=== PATIENT | male | born 1955 | race Caucasian/White ===

== ENCOUNTER 2019-10-31 09:08 | Emergency (ER) | payer BC, MEDICARE, OTHER ==
--- NOTE | 2019-10-31 10:43 | EDM.PDOC ---
ED [facility] GENERAL MEDICAL PROBLEM - General Chief Complaint: Gastrointestinal Problem Stated Complaint: BLEEDING OUT RECTUM Time Seen by Provider: 10/31/19 10:40 Source of Information: Reports: Patient History Limitations: Reports: No Limitations - History of Present Illness INITIAL COMMENTS - FREE TEXT/NARRATIVE: Patient 62-year-old male with a past medical history of obesity, osteoarthritis presenting with a chief complaint of bleeding from the rectum this morning. Patient has a past medical history of several hemorrhoids. Patient has not sought any treatment for these hemorrhoids and has been dealing with them. 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 Patient states when he woke up this morning he found a lot of blood in his bed and realized that it was bleeding from his rectum. Patient states that the bleeding stopped spontaneously. Patient denies any feelings of lightheadedness or dizziness. Patient denies any significant amount of blood loss previously. Patient was seen at the NH and referred to the emergency room for further management. In addition to that documented in the HPI above, the additional ROS was obtained : Constitutional: Denies fevers or chills Eyes: Denies vision changes ENMT: Denies sore throat CV: Denies chest pain Resp: Denies SOB GI: Denies vomiting or diarrhea : Denies painful urination MSK: Denies recent trauma Skin: Denies new rashes Neuro: Denies new numbness or tingling or weakness Endocrine: Denies unexpected weight loss Heme: Denies bleeding disorders I have reviewed the triage vital signs Const: Well nourished, well developed, appears stated age Eyes: PERRL, no conjunctival injection HENT: NCAT, Neck supple without meningismus CV: RRR, Warm, well-perfused extremities RESP: CTAB, Unlabored respiratory effort GI: soft, non-tender, non-distended, no masses Rectal: EDITH Alexandre present, 2 cm external hemorrhoid which is nonthrombosed and not actively bleeding. MSK: No gross deformities appreciated Skin: Warm, dry. No rashes Neuro: Alert, manager of transportation II-XII grossly intact. Sensation and motor function of extremities grossly intact. Psych: Appropriate mood and affect Assessment and plan: Patient is 64-year-old male presenting with external nonthrombosed hemorrhoid. Patient has no active bleeding. Patient will be prescribed pain control stool softener. Patient will have outpatient referral for general surgery for potential elective repair. Patient given instructions to return to the emergency department for hardening of the hemorrhoid or any other concerns. Patient given education on dietary changes for reduction of constipation. - Related Data Allergies Allergy/AdvReac Type Severity Reaction Status Date / Time No Known Allergies Allergy Verified 01/21/16 12:19 Home Meds: Home Meds Methocarbamol 1 tab PO ASDIRECTED PRN 01/21/16 [History] Albuterol Sulfate [Proair Respiclick] 1 10/31/19 [History] Budesonide/Formoterol [Symbicort 160-4.5 MCG] 1 10/31/19 [History] Docusate Sodium [Colace] 100 mg PO BID #30 capsule 10/31/19 [Rx] Fish Oil/[place]-3 Fatty Acids [Fish Oil 1,000 MG] 1 cap PO DAILY 10/31/19 [ History] Lidocaine 4% Top Soln LTA [LTA 360 Kit Top Soln] 4 ml TOP BID #1 kit 10/31/19 [ Rx] Mineral Oil/Pramoxine/ZnOx [Anusol] 30 gm .XX BID #1 tube 10/31/19 [Rx] Sennosides [Senna] 8.6 mg PO DAILY #30 tablet 10/31/19 [Rx] metFORMIN [Glucophage XR] 500 mg PO DAILY 10/31/19 [History] Past Medical History HEENT History: Reports: None Cardiovascular History: Reports: None Respiratory History: Reports: Sleep Apnea Other Respiratory History: uses CPAP Gastrointestinal History: Reports: None Genitourinary History: Reports: None Musculoskeletal History: Reports: Arthritis, Back Pain, Chronic, Neck Pain, Chronic Other Musculoskeletal History: knee arthralgia Neurological History: Reports: None Psychiatric History: Reports: None Endocrine/Metabolic History: Reports: Diabetes, Type II, Obesity/BMI 30+ Hematologic History: Reports: None Immunologic History: Reports: None Oncologic (Cancer) History: Reports: None Dermatologic History: Reports: None - Past Surgical History Head Surgeries/Procedures: Reports: None Social & Family History - Family History Family Medical History: Noncontributory - Tobacco Use Smoking Status *Q: Former Smoker Used Tobacco, but Quit: Yes Month/Year Tobacco Last Used: 10/2003 - Recreational Drug Use Recreational Drug Use: No ED ROS GENERAL - Review of Systems Review Of Systems: See Below ED EXAM, GI/ABD - Physical Exam Exam: See Below Course - Vital Signs Last Recorded V/S: Last Vital Signs Temp 36.2 C 10/31/19 09:18 Pulse 90 10/31/19 09:18 Resp 15 10/31/19 09:18 BP 177/104 H 10/31/19 09:18 Pulse Ox 95 10/31/19 09:18 Departure - Departure Time of Disposition: 10:43 Disposition: Home, Self-Care 01 Clinical Impression: Hemorrhoids - Discharge Information Prescriptions: Docusate Sodium [Colace] 100 mg PO BID #30 capsule Lidocaine 4% Top Soln LTA [LTA 360 Kit Top Soln] 4 ml TOP BID #1 kit Mineral Oil/Pramoxine/ZnOx [Anusol] 30 gm .XX BID #1 tube Sennosides [Senna] 8.6 mg PO DAILY #30 tablet Instructions: Hemorrhoids, [id number] Referrals: Luisito Sue ROUND CUTTER OPERATOR [Primary Care Provider] - Forms: ED Department Discharge Additional Instructions: The following information is given to patients seen in the emergency department who are being discharged to home. This information is to outline your options for follow-up care. We provide all patients seen in our emergency department with a follow-up referral. The need for follow-up, as well as the timing and circumstances, are variable depending upon the specifics of your emergency department visit. If you don't have a primary care physician on staff, we will provide you with a referral. We always advise you to contact your personal physician following an emergency department visit to inform them of the circumstance of the visit and for follow-up with them and/or the need for any referrals to a consulting specialist. The emergency department will also refer you to a specialist when appropriate. This referral assures that you have the opportunity for follow-up care with a specialist. All of these measure are taken in an effort to provide you with optimal care, which includes your follow-up. Under all circumstances we always encourage you to contact your private physician who remains a resource for coordinating your care. When calling for follow-up care, please make the office aware that this follow-up is from your recent emergency room visit. If for any reason you are refused follow-up, please contact the [facility] Emergency Department at and asked to speak to the emergency department charge nurse. Sepsis Event Note - Evaluation Sepsis Screening Result: No Definite Risk - Focused Exam Vital Signs: Vital Signs Temp Pulse Resp BP Pulse Ox 10/31/19 09:18 36.2 C 90 15 177/104 H 95 Date Exam was Performed: 10/31/19 Time Exam was Performed: 10:40
== END 2019-10-31 10:48 | disposition home or self-care (01) ==
LOC: MW.ED 09:08
CPT/HCPCS: 99283

== ENCOUNTER 2021-06-27 12:09 | Emergency (ER) | payer OTHER, MEDICARE ==
--- NOTE | 2021-06-27 15:57 | EDM.PDOC ---
<Tl Guardado - Last Filed: 06/27/21 16:42> ED HPI GENERAL MEDICAL PROBLEM - General Chief Complaint: Abdominal Pain Stated Complaint: DIVERTICULITIS Time Seen by Provider: 06/27/21 15:57 Source of Information: Reports: Patient History Limitations: Reports: No Limitations - History of Present Illness INITIAL COMMENTS - FREE TEXT/NARRATIVE: 66-year-old male past medical history obesity, diverticulitis presents for left lower quadrant pain. Patient states he was in a normal state of health yesterday. He woke up with pain in his left lower quadrant that is worse with palpation. He denies any diarrhea. Denies any nausea or vomiting. Denies any fevers. States it feels like prior episodes of diverticulitis Left Abdominal Pain Score (Numeric/FACES): 0 - Related Data Allergies Allergy/AdvReac Type Severity Reaction Status Date / Time No Known Allergies Allergy Verified 12/20/20 10:34 Home Meds: Home Meds methocarbamoL [Methocarbamol] 1 tab PO ASDIRECTED PRN 01/21/16 [History] Albuterol Sulfate [Proair Respiclick] 1 - 2 puff INH ASDIRECTED PRN 10/31/19 [History] Budesonide/Formoterol [Symbicort 160-4.5 MCG] 2 puff INH BID 10/31/19 [History] Fish Oil/[place]-3 Fatty Acids [Fish Oil 1,000 MG] 1 cap PO DAILY 10/31/19 [History] metFORMIN [Glucophage XR] 500 mg PO ASDIRECTED 10/31/19 [History] Diclofenac Sodium 50 mg PO DAILY PRN 12/20/20 [History] Hydrocortisone [Hydrocortisone 2.5% Crm] 1 applic TOP ASDIRECTED PRN 12/20/20 [History] Ibuprofen 3 tab PO ASDIRECTED PRN 12/20/20 [History] Amoxicillin/Clavulanate K [Augmentin 875-125 MG] 1 tab PO Q12HR 14 Days #28 tab 06/27/21 [Rx] traMADol [Ultram] 50 mg PO Q6H PRN #12 tab 06/27/21 [Rx] Past Medical History HEENT History: Reports: None Cardiovascular History: Reports: None Respiratory History: Reports: Sleep Apnea Other Respiratory History: uses CPAP Gastrointestinal History: Reports: None Genitourinary History: Reports: None Musculoskeletal History: Reports: Arthritis, Back Pain, Chronic, Neck Pain, Chronic Other Musculoskeletal History: knee arthralgia Neurological History: Reports: None Psychiatric History: Reports: None Endocrine/Metabolic History: Reports: Diabetes, Type II, Obesity/BMI 30+ Hematologic History: Reports: None Immunologic History: Reports: None Oncologic (Cancer) History: Reports: None Dermatologic History: Reports: None - Past Surgical History Head Surgeries/Procedures: Reports: None Social & Family History - Family History Family Medical History: No Pertinent Family History ED ROS GENERAL - Review of Systems Review Of Systems: Comprehensive ROS is negative, except as noted in HPI. ED EXAM, GENERAL - Physical Exam Exam: See Below Exam Limited By: No Limitations General Appearance: Alert, WD/WN, No Apparent Distress Ears: Hearing Grossly Normal Throat/Mouth: Normal Voice, No Airway Compromise Head: Atraumatic, Normocephalic Neck: Normal Inspection Respiratory/Chest: No Respiratory Distress, Lungs Clear, Normal Breath Sounds, No Accessory Muscle Use Cardiovascular: Normal Peripheral Pulses, Regular Rate, Rhythm GI/Abdominal: Other (Soft, obese, left lower quadrant tenderness to palpation without guarding or rebound) Extremities: Normal Inspection Neurological: Alert, Normal Cognition, Normal Gait Psychiatric: Normal Affect, Normal Mood Skin Exam: Warm, Dry, Intact, Normal Color Course - Re-Assessments/Exams Free Text/Narrative Re-Assessment/Exam: 06/27/21 16:44 We will get basic labs. Will get CT imaging. Departure - Departure Disposition: Home, Self-Care 01 Clinical Impression: Diverticulitis - Discharge Information Instructions: Diverticulitis Referrals: Luisito Sue CLIENT SUPPORT COORDINATOR [Primary Care Provider] - Forms: ED Department Discharge Additional Instructions: You were seen and evaluated in the ER today secondary to signs and symptoms that were consistent with diverticulitis. The CT scan of the abdomen and pelvis that we reviewed is consistent with acute diverticulitis without any evidence of perforation or abscess. This can be treated as an outpatient with oral antibiotics and an extremely bland diet. Please return to the ER if you start developing worsening pain, fevers, or any new or concerning symptoms. You will be given a prescription for Augmentin 875 to take twice a day for 14 days. You will be given a prescription for Ultram to take to assist you with pain and discomfort. The following information is given to patients seen in the emergency department who are being discharged to home. This information is to outline your options for follow-up care. We provide all patients seen in our emergency department with a follow-up referral. The need for follow-up, as well as the timing and circumstances, are variable depending upon the specifics of your emergency department visit. If you don't have a primary care physician on staff, we will provide you with a referral. We always advise you to contact your personal physician following an emergency department visit to inform them of the circumstance of the visit and for follow-up with them and/or the need for any referrals to a consulting specialist. The emergency department will also refer you to a specialist when appropriate. This referral assures that you have the opportunity for follow-up care with a specialist. All of these measure are taken in an effort to provide you with optimal care, which includes your follow-up. Under all circumstances we always encourage you to contact your private pranavy sician who remains a resource for coordinating your care. When calling for follow-up care, please make the office aware that this follow-up is from your recent emergency room visit. If for any reason you are refused follow-up, please contact the [facility] Emergency Department at and asked to speak to the emergency department charge nurse. [facility] [address] [place] [id number] [place] [address] <Tam Del Rosario - Last Filed: 06/27/21 20:29> ED HPI GENERAL MEDICAL PROBLEM - History of Present Illness INITIAL COMMENTS - FREE TEXT/NARRATIVE: 8:21 PM: Signout received at 7 PM. This is a 66-year-old gentleman who presents ER today complaining of pain to his left lower quadrant with a history significant for diverticulitis. Patient CT scan is consistent with uncomplicated diverticulitis of his mid colon. Patient does not have any evidence of perforation or abscess formation. Patient's repeat abdominal exam here in the ED does not reveal an acute surgical abdomen. Abd: Soft, nondistended, no rebound/guarding, no psoas or obturator signs, no tenderness at Mcberney's point, no Main's sign. Pt does not present with an exam that would be consistent with an acute surgical abdomen at this time Patient will be given Augmentin 875 twice daily x14 days will be instructed to follow-up with his primary care physician. Patient was given a prescription for Ultram as well. Patient was given instructions for bland diet and will need to follow-up with his primary care physician early next week for reevaluation. I have discussed with the patient return to the ER if he start developing any worsening pain, fevers or any other new or concerning symptoms. Reassessment at the time of disposition demonstrates that the patient is in no acute distress. The patient has remained stable throughout the entire ED visit and is without objective evidence for acute process requiring urgent intervention or hospitalization. The patient is stable for discharge, counseling is provided as documented above, discussed symptomatic treatment and specific co nditions for return. I have spoken with the patient/caregiver and discussed todays findings, in addition to providing specific details for the plan of care. Questions are answered and there is agreement with the plan. ED ROS GENERAL - Review of Systems Review Of Systems: See Below ED EXAM, GENERAL - Physical Exam Exam: See Below Course - Vital Signs Last Recorded V/S: Last Vital Signs Temp 98 F 06/27/21 16:10 Pulse 96 06/27/21 16:10 Resp 18 06/27/21 16:10 BP 140/81 06/27/21 16:10 Pulse Ox 93 L 06/27/21 16:10 - Orders/Labs/Meds Orders: Active Orders 24 hr Category Date Time Status Amoxicillin/Clavulanate K [Augmentin 875 MG/125 MG] Med 06/27/21 20:20 Once 1 tab PO ONETIME ONE Ketorolac [Toradol] Med 06/27/21 20:21 Stat 15 mg IVPUSH Q6H STA traMADol [Ultram] Med 06/27/21 20:21 Once 50 mg PO ONETIME ONE Labs: Laboratory Tests 06/27/21 06/27/21 06/27/21 Range/Units 16:16 16:45 16:45 WBC 11.85 H (4.0-11.0) K/uL RBC 5.39 (4.50-5.90) M/uL Hgb 16.8 (13.0-17.0) g/dL Hct 46.4 (38.0-50.0) % MCV 86.1 (80.0-98.0) fL MCH 31.2 (27.0-32.0) pg MCHC 36.2 (31.0-37.0) g/dL RDW Std Deviation 40.4 (28.0-62.0) fl RDW Coeff of Nilo 13 (11.0-15.0) % Plt Count 172 (150-400) K/uL MPV 9.60 (7.40-12.00) fL Neut % (Auto) 61.5 (48.0-80.0) % Lymph % (Auto) 26.9 (16.0-40.0) % Bryan % (Auto) 10.3 (0.0-15.0) % Eos % (Auto) 0.8 (0.0-7.0) % Baso % (Auto) 0.5 (0.0-1.5) % Neut # (Auto) 7.3 H (1.4-5.7) K/uL Lymph # (Auto) 3.2 H (0.6-2.4) K/uL Bryan # (Auto) 1.2 H (0.0-0.8) K/uL Eos # (Auto) 0.1 (0.0-0.7) K/uL Baso # (Auto) 0.1 (0.0-0.1) K/uL Nucleated RBC % 0.0 /100WBC Nucleated RBCs # 0 K/uL Sodium 136 (136-148) mmol/L Potassium 4.0 (3.5-5.1) mmol/L Chloride 101 (98-107) mmol/L Carbon Dioxide 25.0 (21.0-32.0) mmol/L BUN 9 (7.0-18.0) mg/dL Creatinine 1.1 (0.8-1.3) mg/dL Est Cr Clr Drug Dosing 65.64 mL/min Estimated GFR (MDRD) > 60.0 ml/min Glucose 166 H (74-106) mg/dL Calcium 8.4 L (8.5-10.1) mg/dL Total Bilirubin 2.1 H (0.2-1.0) mg/dL AST 39 H (15-37) IU/L ALT 76 H (14-63) IU/L Alkaline Phosphatase 73 (46-116) U/L Total Protein 7.7 (6.4-8.2) g/dL Albumin 3.9 (3.4-5.0) g/dL Globulin 3.8 (2.6-4.0) g/dL Albumin/Globulin Ratio 1.0 (0.9-1.6) Lipase 81 (73-393) U/L Urine Color YELLOW Urine Appearance CLEAR Urine pH 5.5 (5.0-8.0) Ur Specific Sawyer >= 1.030 (1.001-1.035) Urine Protein TRACE H (NEGATIVE) mg/dL Urine Glucose (UA) NEGATIVE (NEGATIVE) mg/dL Urine Ketones NEGATIVE (NEGATIVE) mg/dL Urine Occult Blood NEGATIVE (NEGATIVE) Urine Nitrite NEGATIVE (NEGATIVE) Urine Bilirubin NEGATIVE (NEGATIVE) Urine Urobilinogen 0.2 (<2.0) EU/dL Ur Leukocyte Esterase NEGATIVE (NEGATIVE) Urine RBC 0-1 (0-2/HPF) Urine WBC 0-1 (0-5/HPF) Ur Epithelial Cells RARE (NONE-FEW) Urine Bacteria RARE (NEGATIVE) Urine Mucus LIGHT (NONE-MOD) Meds: Medications Discontinued Medications Generic Name Dose Route Start Last Admin Trade Name Shruthi PRN Reason Stop Dose Admin Iopamidol 100 ml 06/27/21 19:14 06/27/21 19:15 Iopamidol 755 Mg/Ml 500 Ml Multipack Bottle IVPUSH 06/27/21 19:15 100 ml ONETIME STA Administration Departure - Departure Time of Disposition: 20:25 Sepsis Event Note (ED) - Focused Exam Vital Signs: Vital Signs Temp Pulse Resp BP Pulse Ox 06/27/21 16:10 98 F 96 18 140/81 93 L - My Orders Last 24 Hours: My Active Orders 06/27/21 20:20 Amoxicillin/Clavulanate K [Augmentin 875 MG/125 MG] 1 tab PO ONETIME ONE 06/27/21 20:21 Ketorolac [Toradol] 15 mg IVPUSH Q6H STA traMADol [Ultram] 50 mg PO ONETIME ONE - Assessment/Plan Last 24 Hours: My Active Orders 06/27/21 20:20 Amoxicillin/Clavulanate K [Augmentin 875 MG/125 MG] 1 tab PO ONETIME ONE 06/27/21 20:21 Ketorolac [Toradol] 15 mg IVPUSH Q6H STA traMADol [Ultram] 50 mg PO ONETIME ONE
[2021-06-27 16:19] VITALS: PULSE 96
[2021-06-27 17:35] LABS: BLOOD UREA NITROGEN,BUN 9 mg/dL (7.0-18.0); CHLORIDE,CL 101 mmol/L (98-107); GLUCOSE RANDOM 166 mg/dL (74-106); LIPASE 81 U/L (73-393); SODIUM,NA 136 mmol/L (136-148)
[2021-06-27] MEDS ORDERED: Iopamidol 755 MG/ML 500 ML Multipack Bottle IVPUSH STA (19:14)
--- NOTE | 2021-06-27 19:29 | CT ---
INDICATION: Left lower quadrant pain, history of diverticulitis. TECHNIQUE: CT of the abdomen and pelvis with 100 cc Isovue 370 IV contrast. Coronal and sagittal reconstructions. COMPARISON: CT of the abdomen and pelvis 03/02/2019. FINDINGS: The liver is enlarged measuring 24 cm in length. Marked diffuse hepatic steatosis. The spleen is enlarged measuring 14 cm in length. Splenule. The gallbladder, pancreas, and right adrenal gland are negative. No biliary dilation. Stable small left adrenal nodule which most likely represents a benign adenoma. Hepatic and portal veins are patent. Symmetric enhancement of the kidneys. Focal cortical scarring in the posterior upper pole of the right kidney. No hydronephrosis or ureteral dilation. No obstructing urinary calculi. The bladder and prostate gland are normal in appearance. Colonic diverticulosis. There is focal wall thickening and inflammatory fat stranding about the mid descending colon compatible with acute diverticulitis (series 201, image 112). This is in a similar location to the prior exam. No fluid collection to suggest abscess. Trace free fluid in the left paracolic gutter. No intraperitoneal free air. Negative appendix. 5.5 cm diverticulum arising from the distal transverse duodenum. Mild vascular calcifications. No lymphadenopathy. Degenerative changes of the spine. Stable 7 mm noncalcified pulmonary nodule along the left major fissure (series 202, image 3). This is unchanged since 2019 and should be benign. Minimal scattered bibasilar atelectasis. Coronary artery calcifications. IMPRESSION: 1. Acute uncomplicated diverticulitis of the mid descending colon. No evidence of perforation or abscess. 2. Hepatosplenomegaly with marked diffuse hepatic steatosis. Please note that all CT scans at this facility use dose modulation, iterative reconstruction, and/or weight-based dosing when appropriate to reduce radiation dose to as low as reasonably achievable. Dictated by Radha Delacruz MD @ 06/27/2021 7:27:24 PM (Electronically Signed)
[2021-06-27] MEDS ORDERED: Amoxicillin/Clavulanate K 875-125 MG Tab PO ONE (20:20)
[2021-06-27] MEDS ORDERED: Ketorolac 15 MG/ML SDV IVPUSH STA (20:21)
[2021-06-27] MEDS ORDERED: traMADol 50 MG Tab PO ONE (20:21)
[2021-06-27 20:43] VITALS: BP 131/80
== END 2021-06-27 20:45 | disposition home or self-care (01) ==
LOC: MW.ED 12:09
DX: K57.32 Diverticulitis of large intestine without perforation or abscess without bleeding (principal); M19.90 Unspecified osteoarthritis, unspecified site; E11.9 Type 2 diabetes mellitus without complications; E66.9 Obesity, unspecified; Z68.43 Body mass index [BMI] 50.0-59.9, adult; Z79.84 Long term (current) use of oral hypoglycemic drugs; Z79.899 Other long term (current) drug therapy
CPT/HCPCS: 36415; 74177; 80053; 81001; 83690; 85025; 96374; 99284; A9270; J1885; Q9967

== ENCOUNTER 2021-07-25 19:20 | Emergency (ER) | payer OTHER, MEDICARE ==
--- NOTE | 2021-07-25 21:02 | PCM.EKG ---
#1 Interpretation EKG Date: 07/25/21 Time: 20:26 Rhythm: NSR Rate (Beats/Min): 111 [place]: LAD-Left [place] Deviation P-Wave: Present QRS: Normal ST-T: Normal QT: Normal Comparison: No Change (01/22/16) EKG Interpretation Comments: Sinus Tachycardia
[2021-07-25] MEDS ORDERED: Iopamidol 755 Mg/ML 100 ML Bottle IVPUSH ONE (21:22)
--- NOTE | 2021-07-25 21:57 | CR ---
Indication: Syncope. Technique: AP portable view of the chest. Comparison: None Findings: The heart is normal in size. The lungs are clear. No infiltrate, pleural effusion, or pneumothorax is identified. Impression: No acute cardiopulmonary process Dictated by Ameena Dent MD @ 07/25/2021 9:55:36 PM (Electronically Signed)
[2021-07-25 22:07] LABS: BLOOD UREA NITROGEN,BUN 11 mg/dL (7.0-18.0); CARBON DIOXIDE,CO2 25.5 mmol/L (21.0-32.0); CHLORIDE,CL 102 mmol/L (98-107); GLUCOSE RANDOM 211 mg/dL (74-106); POTASSIUM,K 4.1 mmol/L (3.5-5.1); SODIUM,NA 137 mmol/L (136-148)
--- NOTE | 2021-07-25 22:07 | CT ---
DATE: 07/25/2021 CLINICAL HISTORY: Patient with headache and vertigo. TECHNIQUE: Standard helical CT image acquisition through the head and neck was performed after intravenous contrast bolus enhancement. Multiplanar reconstructed images were performed and interpreted. COMPARISON: CT same day FINDINGS: The origins of the great vessels from the aortic arch are patent. The origin of the right vertebral artery is patent. The origin of the left vertebral artery is patent. The common carotid arteries are patent There is no stenosis at the origin of the right internal carotid artery. There is no stenosis at the origin of the left internal carotid artery. The rest of the cervical segments of the internal carotid arteries are patent up to their intracranial segments. The intracranial segments of the internal carotid arteries are patent. The right vertebral artery is dominant. The cervical segments of the vertebral arteries are patent. The intracranial segments of the vertebral arteries are patent. The middle cerebral arteries are normal without aneurysm or proximal occlusion identified. The anterior cerebral arteries are normal without aneurysm or proximal occlusion identified. The anterior communicating artery is well visualized and appears normal. The basilar artery is normal without aneurysm or occlusion. The posterior cerebral arteries are normal without aneurysm or proximal occlusion. There is normal opacification of major intracranial venous structures. The visualized lung apices are unremarkable The thyroid gland is unremarkable. The soft tissues of the neck are unremarkable. There are degenerative changes in the cervical spine. IMPRESSION: Normal CT angiogram of the head and neck. Please note that all CT scans at this facility use dose modulation, iterative reconstruction, and/or weight-based dosing when appropriate to reduce radiation dose to as low as reasonably achievable. Dictated by Emily Quigley MD @ 07/25/2021 10:11:57 PM (Electronically Signed)
[2021-07-25] MEDS ORDERED: Aspirin 81 MG Tab.Chew PO ONE (23:39)
[2021-07-26 00:06] VITALS: BP 145/91; PULSE 127
--- NOTE | 2021-07-26 00:23 | EDM.PDOC ---
ED HPI GENERAL MEDICAL PROBLEM - General Chief Complaint: Headache Stated Complaint: DIZZINESS, HEADACHE Time Seen by Provider: 07/25/21 20:10 - History of Present Illness INITIAL COMMENTS - FREE TEXT/NARRATIVE: CHIEF COMPLAINT(S): Dizziness and trouble walking HISTORY OF PRESENT ILLNESS: This is a 66-year-old man with a past medical history of diabetes mellitus who comes to the emergency department with a chief complaint of dizziness and trouble walking. The patient states that approximately at noon he started to experience dizziness which he describes as the room spinning constantly. He states that moving his head does not worsen the spinning and it is constant throughout any movement. He states that it got worse and he just fought through it and made dinner. He states that it has been strange because he is having a tough time walking and describes it like drunk walking. He states that this came on gradually and he has never had this before. He denies any earache, runny nose, dental pain or dental infection. He denies any blurry vision or loss of vision. He states that he did have a mild headache which resolved but described it as a throbbing headache located in the center of his head from the front to the back not associated with any numbness, tingling or weakness. He denies any trouble speaking or swallowing. He denies any IV drug use or prior history of CVA. He denies any chest pain, shortness of breath or prior history of atrial fibrillation. REVIEW OF SYSTEMS: Constitutional: Denies fever, chills. Eyes: Denies eye pain Ears, Nose, Mouth, & Throat: Denies earache Cardiovascular: Denies chest pain Respiratory: Denies shortness of breath Gastrointestinal: Denies Nausea, vomiting, diarrhea, hematochezia. Genitourinary: Denies hematuria Skin:Denies a rash MSK: Denies joint pain Neurological: Positive for headache, trouble walking, vertigo. Psychiatric: Denies depression PAST MEDICAL HISTORY: As per history of present illness and as reviewed below otherwise noncontributory. SURGICAL HISTORY: As per history of present illness and as reviewed below otherwise noncontributory. SOCIAL HISTORY: As per history of present illness and as reviewed below otherwise noncontributory. FAMILY HISTORY: As per history of present illness and as reviewed below otherwise noncontributory. EXAMINATION OF ORGAN SYSTEMS/BODY AREAS: Constitutional: Blood pressure is 172/90, heart rate 114, respiratory rate 22 with an oxygen saturation of 94% on room air. Temperature 37.1 General: Obese gentleman who does not appear to be in acute distress Psychiatric: Appropriate mood and affect. Eyes: No scleral icterus or conjunctival erythema pupils were 3 mm and reactive bilaterally. Extraocular movements intact. No vertical or horizontal nystagmus noted. ENMT: Moist mucous membranes. No pharyngeal erythema tongue protrudes midline. Cardiovascular: Regular, rate, and rhythm. No gallops, murmurs, or rubs. Bilateral upper extremity pulses symmetric and intact. No peripheral edema. No JVD. Respiratory: Lungs clear to auscultation bilaterally. No wheezes, rales, or rhonchi. Gastrointestinal: Soft, non-tender, non-distended. Normoactive bowel sounds Genitourinary: No suprapubic tenderness Musculoskeletal: Normal range of motion. Skin: No lesions or abrasions. Neurological: AOx4. Facies are symmetrical. Strength 5/5 in bilateral upper and lower extremity. Sensation is intact bilaterally in upper and lower extremity. Gait is ataxic. Finger to nose, heel to beaver, rapid alternating movements intact. MEDICAL DECISION MAKING AND COURSE IN THE ED WITH INTERPRETATION/REVIEW OF DIAGNOSTIC STUDIES: This is a 66-year-old man with a past medical history of obesity and diabetes mellitus who comes to the emergency department with acute onset vertigo and ataxia who has an ataxic gait with an otherwise intact neurological examination. The patient is mildly tachycardic and tachypneic. Will obtain an EKG. Given the persistent and constant vertigo and ataxic gait I am concerned about the possibility of a posterior circulation stroke. We will obtain a CT head and angiogram of the head and neck however I did discuss with patient at this time that most posterior strokes are missed on these images and will likely need an MRI. He was amenable to this plan. In addition given the dizziness we will undergo a cardiac work-up. Obtain CBC, CMP, troponin, Covid, and TSH. Differential also includes carbon monoxide poisoning will obtain a CO level. Will obtain a chest x-ray. Laboratory: CBC is unremarkable. Carboxyhemoglobin is 1.7. CMP reveals elevated creatinine at 1.4, hyperglycemia at 211, hypocalcemia 8.4, hyperbilirubinemia with a total bilirubin of 1.1 and a transaminitis with an AST of 41 and ALT of 75. Troponin is negative. TSH is normal at 1.8. Covid is negative. The radiological images were viewed by myself along with reading the report from the radiologist. Chest x-ray does not reveal any acute cardiopulmonary process. CT head without contrast does not reveal any acute intracranial abnormality. CTA of the head and neck do not reveal any large vessel occlusion or aneurysm. After imaging I did contact [facility] in [place] and spoke with Dr. Ferro who does recommend a MRI to evaluate for posterior circulation stroke. I then spoke with emergency physician Dr. Solares who accepted the patient for transfer. We have contacted every ambulance service within the area and nobody is available for transport until 6 AM. In addition the patient does not meet flight criteria. I did discuss with the patient about the possibility of pr ivate vehicle transfer. The patient is tachycardic and but otherwise has normal vital signs. Repeat EKG did reveal sinus tachycardia. I do believe that a private vehicle transport at this time is warranted as it will allow him to arrive sooner for emergent MRI for possible posterior circulation stroke. He was amenable to this plan. There are multiple emergency departments on his way to [facility] and I did discuss that if he felt any chest pain, shortness of breath felt like he was going to pass out or had any concerns to stop on the side of the road with his friend and call 911. He did express understanding and was amenable to this plan. I did discuss this with accepting facility. DISPOSITION: Patient was transferred to [facility] in [place] in stable condition CONDITION: Serious PROCEDURES: None FINAL IMPRESSION(S)/DIAGNOSES: 1. 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 Acute ataxia likely secondary to posterior circulation CVA Nadre Shearer M.D. Treatments INCLUSION TEACHER: Reports: NSAIDS - Related Data Allergies Allergy/AdvReac Type Severity Reaction Status Date / Time No Known Allergies Allergy Verified 07/25/21 23:55 Home Meds: Home Meds methocarbamoL [Methocarbamol] 1 tab PO ASDIRECTED PRN 01/21/16 [History] Albuterol Sulfate [Proair Respiclick] 1 - 2 puff INH ASDIRECTED PRN 10/31/19 [History] Budesonide/Formoterol [Symbicort 160-4.5 MCG] 2 puff INH BID 10/31/19 [History] Fish Oil/[place]-3 Fatty Acids [Fish Oil 1,000 MG] 1 cap PO DAILY 10/31/19 [History] metFORMIN [Glucophage XR] 500 mg PO ASDIRECTED 10/31/19 [History] Diclofenac Sodium 50 mg PO DAILY PRN 12/20/20 [History] Hydrocortisone [Hydrocortisone 2.5% Crm] 1 applic TOP ASDIRECTED PRN 12/20/20 [History] Ibuprofen 3 tab PO ASDIRECTED PRN 12/20/20 [History] Alogliptin Benzoate [Alogliptin] 12.5 mg PO DAILY 07/25/21 [History] Past Medical History HEENT History: Reports: None Cardiovascular History: Reports: Hypertension Respiratory History: Reports: Sleep Apnea Other Respiratory History: uses CPAP Gastrointestinal History: Reports: None Genitourinary History: Reports: None Musculoskeletal History: Reports: Arthritis, Back Pain, Chronic, Neck Pain, Chronic Other Musculoskeletal History: knee arthralgia Neurological History: Reports: None Psychiatric History: Reports: None Endocrine/Metabolic History: Reports: Diabetes, Type II, Obesity/BMI 30+ Hematologic History: Reports: None Immunologic History: Reports: None Oncologic (Cancer) History: Reports: None Dermatologic History: Reports: None - Infectious Disease History Infectious Disease History: Reports: Chicken Pox, Measles, Novel Coronavirus - Past Surgical History Head Surgeries/Procedures: Reports: None Other Musculoskeletal Surgeries/Procedures:: hx knee surgery and left index metacarpal surgery Dermatological Surgical History: Reports: Other (See Below) Social & Family History - Family History Family Medical History: No Pertinent Family History - Tobacco Use Tobacco Use Status *Q: Former Tobacco User Used Tobacco, but Quit: Yes Month/Year Tobacco Last Used: 2003 - Caffeine Use Caffeine Use: Reports: Coffee - Recreational Drug Use Recreational Drug Use: No ED ROS GENERAL - Review of Systems Review Of Systems: See Below ED EXAM, GENERAL - Physical Exam Exam: See Below Course - Vital Signs Last Recorded V/S: Last Vital Signs Temp 37.1 C 07/25/21 19:37 Pulse 127 H 07/26/21 00:05 Resp 19 07/26/21 00:05 BP 145/91 H 07/26/21 00:05 Pulse Ox 95 07/26/21 00:05 - Orders/Labs/Meds Orders: Active Orders 24 hr Category Date Time Status Blood Glucose Check, Bedside [RC] ONETIME Care 07/25/21 20:22 Active Ang Head [CT] Stat Exams 07/25/21 21:15 Taken Head wo Cont [CT] Stat Exams 07/25/21 21:15 Taken Labs: Laboratory Tests 07/25/21 07/25/21 07/25/21 Range/Units 20:20 21:28 21:28 WBC 8.65 (4.0-11.0) K/uL RBC 5.33 (4.50-5.90) M/uL Hgb 16.6 (13.0-17.0) g/dL Hct 46.2 (38.0-50.0) % MCV 86.7 (80.0-98.0) fL MCH 31.1 (27.0-32.0) pg MCHC 35.9 (31.0-37.0) g/dL RDW Std Deviation 40.7 (28.0-62.0) fl RDW Coeff of Nilo 13 (11.0-15.0) % Plt Count 162 (150-400) K/uL MPV 9.60 (7.40-12.00) fL Neut % (Auto) 74.3 (48.0-80.0) % Lymph % (Auto) 16.8 (16.0-40.0) % Hale % (Auto) 7.7 (0.0-15.0) % Eos % (Auto) 0.9 (0.0-7.0) % Baso % (Auto) 0.3 (0.0-1.5) % Neut # (Auto) 6.4 H (1.4-5.7) K/uL Lymph # (Auto) 1.5 (0.6-2.4) K/uL Hale # (Auto) 0.7 (0.0-0.8) K/uL Eos # (Auto) 0.1 (0.0-0.7) K/uL Baso # (Auto) 0.0 (0.0-0.1) K/uL Nucleated RBC % 0.0 /100WBC Nucleated RBCs # 0 K/uL ABG Carboxyhemoglobin (0-15) % Sodium 137 (136-148) mmol/L Potassium 4.1 (3.5-5.1) mmol/L Chloride 102 (98-107) mmol/L Carbon Dioxide 25.5 (21.0-32.0) mmol/L BUN 11 (7.0-18.0) mg/dL Creatinine 1.4 H (0.8-1.3) mg/dL Est Cr Clr Drug Dosing 51.57 mL/min Estimated GFR (MDRD) 51.0 ml/min Glucose 211 H (74-106) mg/dL Lactic Acid (0.4-2.0) mmol/L Calcium 8.4 L (8.5-10.1) mg/dL Magnesium 1.9 (1.8-2.4) mg/dL Total Bilirubin 1.1 H (0.2-1.0) mg/dL AST 41 H (15-37) IU/L ALT 75 H (14-63) IU/L Alkaline Phosphatase 68 (46-116) U/L Troponin I < 0.050 (0.000-0.056) ng/mL Total Protein 7.9 (6.4-8.2) g/dL Albumin 3.8 (3.4-5.0) g/dL Globulin 4.1 H (2.6-4.0) g/dL Albumin/Globulin Ratio 0.9 (0.9-1.6) TSH, Ultra Sensitive 1.84 (0.36-3.74) uIU/mL SARS-CoV-2 RNA (ROSIE) NEGATIVE (NEGATIVE) 07/25/21 07/25/21 Range/Units 21:58 23:40 WBC (4.0-11.0) K/uL RBC (4.50-5.90) M/uL Hgb (13.0-17.0) g/dL Hct (38.0-50.0) % MCV (80.0-98.0) fL MCH (27.0-32.0) pg MCHC (31.0-37.0) g/dL RDW Std Deviation (28.0-62.0) fl RDW Coeff of Nilo (11.0-15.0) % Plt Count (150-400) K/uL MPV (7.40-12.00) fL Neut % (Auto) (48.0-80.0) % Lymph % (Auto) (16.0-40.0) % Hale % (Auto) (0.0-15.0) % Eos % (Auto) (0.0-7.0) % Baso % (Auto) (0.0-1.5) % Neut # (Auto) (1.4-5.7) K/uL Lymph # (Auto) (0.6-2.4) K/uL Hale # (Auto) (0.0-0.8) K/uL Eos # (Auto) (0.0-0.7) K/uL Baso # (Auto) (0.0-0.1) K/uL Nucleated RBC % /100WBC Nucleated RBCs # K/uL ABG Carboxyhemoglobin 1.7 (0-15) % Sodium (136-148) mmol/L Potassium (3.5-5.1) mmol/L Chloride (98-107) mmol/L Carbon Dioxide (21.0-32.0) mmol/L BUN (7.0-18.0) mg/dL Creatinine (0.8-1.3) mg/dL Est Cr Clr Drug Dosing mL/min Estimated GFR (MDRD) ml/min Glucose (74-106) mg/dL Lactic Acid 1.4 (0.4-2.0) mmol/L Calcium (8.5-10.1) mg/dL Magnesium (1.8-2.4) mg/dL Total Bilirubin (0.2-1.0) mg/dL AST (15-37) IU/L ALT (14-63) IU/L Alkaline Phosphatase (46-116) U/L Troponin I (0.000-0.056) ng/mL Total Protein (6.4-8.2) g/dL Albumin (3.4-5.0) g/dL Globulin (2.6-4.0) g/dL Albumin/Globulin Ratio (0.9-1.6) TSH, Ultra Sensitive (0.36-3.74) uIU/mL SARS-CoV-2 RNA (ROSIE) (NEGATIVE) Meds: Medications Discontinued Medications Generic Name Dose Route Start Last Admin Trade Name Freq PRN Reason Stop Dose Admin Aspirin 324 mg 07/25/21 23:39 07/25/21 23:48 Aspirin 81 Mg Tab.Chew PO 07/25/21 23:40 324 mg ONETIME ONE Administration Iopamidol 100 ml 07/25/21 21:22 07/25/21 21:50 Iopamidol 755 Mg/Ml 100 Ml Bottle IVPUSH 07/25/21 21:23 100 ml ONETIME ONE Administration Departure - Departure Time of Disposition: 00:19 Disposition: Home, Self-Care 01 Condition: Fair Clinical Impression: Vertigo - Discharge Information *PRESCRIPTION DRUG MONITORING PROGRAM REVIEWED*: No *COPY OF PRESCRIPTION DRUG MONITORING REPORT IN PATIENT ADIEL: No Referrals: Luisito Sue OFFICE SWEEPER [Primary Care Provider] - Forms: ED Department Discharge Sepsis Event Note (ED) - Evaluation Sepsis Screening Result: No Definite Risk - Focused Exam Vital Signs: Vital Signs Temp Pulse Resp BP Pulse Ox 07/26/21 00:05 127 H 19 145/91 H 95 07/25/21 22:25 125 H 20 143/97 H 95 07/25/21 21:45 129 H 19 148/93 H 94 L 07/25/21 19:37 37.1 C 114 H 22 H 172/90 H 94 L - My Orders Last 24 Hours: My Active Orders 07/25/21 20:22 Blood Glucose Check, Bedside [RC] ONETIME 07/25/21 21:15 Ang Head [CT] Stat Head wo Cont [CT] Stat - Assessment/Plan Last 24 Hours: My Active Orders 07/25/21 20:22 Blood Glucose Check, Bedside [RC] ONETIME 07/25/21 21:15 Ang Head [CT] Stat Head wo Cont [CT] Stat
--- NOTE | 2021-07-26 00:39 | PCM.EKG ---
#1 Interpretation EKG Date: 07/26/21 Time: 00:20 Rhythm: NSR Rate (Beats/Min): 125 [place]: Normal P-Wave: Present QRS: Normal ST-T: Normal QT: Normal Comparison: No Change (today) EKG Interpretation Comments: Sinus Tachycardia
--- NOTE | 2021-07-29 14:36 | CT ---
EXAM DATE: 07/25/21 PATIENT'S AGE: 66 Patient: PARESH PERALTA [facility] Site : 1955 Study: CT-Head w/o STROKE PROTOCOL-07/25/2021 10:00:27 PM Ordering Physician: Manfred Doe Final Report: CT HEAD DATE: 07/25/2021 CLINICAL HISTORY: Patient with headache and vertigo. TECHNIQUE: Standard CT scanning of the head was performed. COMPARISON: None. FINDINGS: There is no intracranial hemorrhage. There is no territorial infarction. There are mild microangiopathic changes. There is diffuse parenchymal volume loss. There is no mass effect or midline shift. The calvarium is unremarkable. The orbits are unremarkable. The paranasal sinuses are unremarkable. The mastoid air cells are unremarkable. The soft tissues are unremarkable. IMPRESSION: 1. No intracranial hemorrhage or territorial infarction. 2. Mild microangiopathic changes and diffuse parenchymal volume loss. Please note that all CT scans at this facility use dose modulation, iterative reconstruction, and/or weight-based dosing when appropriate to reduce radiation dose to as low as reasonably achievable. Dictated by: Emily Quigley MD @ 07/25/2021 22:06:59 Signed by: Emily Quigley MD @07/25/2021 10:06:59 PM (Electronic Signature) Report Signed by Proxy. [facility]
--- NOTE | 2021-07-29 14:37 | CT ---
EXAM DATE: 07/25/21 PATIENT'S AGE: 66 Patient: PARESH PERALTA Facility: [facility] . [facility] : 1955 Study: CT-Angio Head STROKE PROTOCOL-07/25/2021 10:00:51 PM Ordering Physician: Manfred Doe Final Report: DATE: 07/25/2021 CLINICAL HISTORY: Patient with headache and vertigo. TECHNIQUE: Standard helical CT image acquisition through the head and neck was performed after intravenous contrast bolus enhancement. Multiplanar reconstructed images were performed and interpreted. COMPARISON: CT same day FINDINGS: The origins of the great vessels from the aortic arch are patent. The origin of the right vertebral artery is patent. The origin of the left vertebral artery is patent. The common carotid arteries are patent There is no stenosis at the origin of the right internal carotid artery. There is no stenosis at the origin of the left internal carotid artery. The rest of the cervical segments of the internal carotid arteries are patent up to their intracranial segments. The intracranial segments of the internal carotid arteries are patent. The right vertebral artery is dominant. The cervical segments of the vertebral arteries are patent. The intracranial segments of the vertebral arteries are patent. The middle cerebral arteries are normal without aneurysm or proximal occlusion identified. The anterior cerebral arteries are normal without aneurysm or proximal occlusion identified. The anterior communicating artery is well visualized and appears normal. The basilar artery is normal without aneurysm or occlusion. The posterior cerebral arteries are normal without aneurysm or proximal occlusion. There is normal opacification of major intracranial venous structures. The visualized lung apices are unremarkable The thyroid gland is unremarkable. The soft tissues of the neck are unremarkable. There are degenerative changes in the cervical spine. IMPRESSION: Normal CT angiogram of the head and neck. Please note that all CT scans at this facility use dose modulation, iterative reconstruction, and/or weight-based dosing when appropriate to reduce radiation dose to as low as reasonably achievable. Dictated by Emily Quigley MD @ 07/25/2021 10:11:22 PM Signed by: Emily Quigley MD @07/25/2021 10:11:22 PM (Electronic Signature) Report Signed by Proxy. [facility]
== END 2021-07-26 00:56 | disposition home or self-care (01) ==
LOC: MW.ED 19:20
DX: R27.0 Ataxia, unspecified (principal); I10 Essential (primary) hypertension; E11.9 Type 2 diabetes mellitus without complications; E66.9 Obesity, unspecified; Z68.43 Body mass index [BMI] 50.0-59.9, adult; Z79.899 Other long term (current) drug therapy; Z79.84 Long term (current) use of oral hypoglycemic drugs; Z87.891 Personal history of nicotine dependence; Z20.822 Contact with and (suspected) exposure to COVID-19
CPT/HCPCS: 36415; 70450; 70496; 70498; 71045; 80053; 82375; 83605; 83735; 84443; 84484; 85025; 87635; 93005; 99285; A9270; Q9967; 93010; 99284; U0002

== ENCOUNTER 2021-10-20 23:01 | Emergency (ER) | payer OTHER, MEDICARE ==
[2021-10-20] MEDS ORDERED: Meclizine 25 MG Tab PO ONE (23:09)
--- NOTE | 2021-10-20 23:09 | EDM.PDOC ---
ED HPI GENERAL MEDICAL PROBLEM - General Stated Complaint: POSSIBLE STROKE, DIZZINESS Time Seen by Provider: 10/20/21 23:02 Source of Information: Reports: Patient History Limitations: Reports: No Limitations - History of Present Illness INITIAL COMMENTS - FREE TEXT/NARRATIVE: 66-year-old male past medical history morbid obesity, type 2 diabetes, hypertension presents for dizziness. Patient states that symptoms started around 8 PM this evening. He describes it as a room spinning sensation and like he feels off balance when he is walking. Nothing seems to make it better or worse including sitting or lying down. He denies any associated shortness of breath, chest pain, headaches, one-sided body weakness, confusion, slurred speech. He notes that he was seen here in July for similar symptoms and transferred to [facility] where he was ultimately diagnosed with TIA. He was started on blood thinning medications but patient cannot remember the names of any of his medications. - Related Data Allergies Allergy/AdvReac Type Severity Reaction Status Date / Time No Known Allergies Allergy Verified 10/20/21 23:34 Home Meds: Home Meds methocarbamoL [Methocarbamol] 1 tab PO ASDIRECTED PRN 01/21/16 [History] Albuterol Sulfate [Proair Respiclick] 1 - 2 puff INH ASDIRECTED PRN 10/31/19 [History] Budesonide/Formoterol [Symbicort 160-4.5 MCG] 2 puff INH BID 10/31/19 [History] Fish Oil/[place]-3 Fatty Acids [Fish Oil 1,000 MG] 1 cap PO DAILY 10/31/19 [History] metFORMIN [Glucophage XR] 500 mg PO ASDIRECTED 10/31/19 [History] Diclofenac Sodium 50 mg PO DAILY PRN 12/20/20 [History] Hydrocortisone [Hydrocortisone 2.5% Crm] 1 applic TOP ASDIRECTED PRN 12/20/20 [History] Ibuprofen 3 tab PO ASDIRECTED PRN 12/20/20 [History] Alogliptin Benzoate [Alogliptin] 12.5 mg PO DAILY 07/25/21 [History] Past Medical History HEENT History: Reports: None Cardiovascular History: Reports: Hypertension Respiratory History: Reports: Sleep Apnea Other Respiratory History: uses CPAP Gastrointestinal History: Reports: None Genitourinary History: Reports: None Musculoskeletal History: Reports: Arthritis, Back Pain, Chronic, Neck Pain, Chronic Other Musculoskeletal History: knee arthralgia Neurological History: Reports: None Psychiatric History: Reports: None Endocrine/Metabolic History: Reports: Diabetes, Type II, Obesity/BMI 30+ Hematologic History: Reports: None Immunologic History: Reports: None Oncologic (Cancer) History: Reports: None Dermatologic History: Reports: None - Infectious Disease History Infectious Disease History: Reports: Chicken Pox, Measles, Novel Coronavirus - Past Surgical History Head Surgeries/Procedures: Reports: None Other Musculoskeletal Surgeries/Procedures:: hx knee surgery and left index metacarpal surgery Dermatological Surgical History: Reports: Other (See Below) Social & Family History - Family History Family Medical History: No Pertinent Family History - Caffeine Use Caffeine Use: Reports: Coffee ED ROS GENERAL - Review of Systems Review Of Systems: Comprehensive ROS is negative, except as noted in HPI. ED EXAM, GENERAL - Physical Exam Exam: See Below Exam Limited By: No Limitations General Appearance: Alert, WD/WN, No Apparent Distress Eye Exam: Bilateral Eye: EOMI, PERRL Ears: Hearing Grossly Normal Throat/Mouth: Normal Voice, No Airway Compromise Head: Atraumatic, Normocephalic Respiratory/Chest: No Respiratory Distress, Lungs Clear, Normal Breath Sounds, No Accessory Muscle Use Cardiovascular: Normal Peripheral Pulses, Regular Rate, Rhythm Extremities: Normal Inspection Neurological: Alert, CN II-XII Intact, Normal Cognition, Normal Gait, No Motor/Sensory Deficits Psychiatric: Normal Affect, Normal Mood Skin Exam: Warm, Dry, Intact, Normal Color #1 Interpretation EKG Date: 10/20/21 Time: 23:23 Rhythm: NSR Rate (Beats/Min): 104 Isabel: Normal P-Wave: Present QRS: Normal ST-T: Normal QT: Normal AR/PQ Interval: 169 EKG Interpretation Comments: no ischemic changes Course - Vital Signs Last Recorded V/S: Last Vital Signs Temp 98.1 F 10/20/21 23:34 Pulse 101 H 10/20/21 23:56 Resp 16 10/20/21 23:56 BP 133/73 10/20/21 23:56 Pulse Ox 95 10/20/21 23:56 - Orders/Labs/Meds Orders: Active Orders 24 hr Category Date Time Status Saline Lock Insert [OM.PC] Stat Oth 10/20/21 23:09 Ordered Labs: Laboratory Tests 10/20/21 10/20/21 10/20/21 Range/Units 23:07 23:10 23:10 WBC 15.84 H (4.0-11.0) K/uL RBC 5.51 (4.50-5.90) M/uL Hgb 16.7 (13.0-17.0) g/dL Hct 47.1 (38.0-50.0) % MCV 85.5 (80.0-98.0) fL MCH 30.3 (27.0-32.0) pg MCHC 35.5 (31.0-37.0) g/dL RDW Std Deviation 41.4 (28.0-62.0) fl RDW Coeff of Nilo 13 (11.0-15.0) % Plt Count 225 (150-400) K/uL MPV 9.10 (7.40-12.00) fL Neut % (Auto) 55.2 (48.0-80.0) % Lymph % (Auto) 35.6 (16.0-40.0) % [place] % (Auto) 7.9 (0.0-15.0) % Eos % (Auto) 0.9 (0.0-7.0) % Baso % (Auto) 0.4 (0.0-1.5) % Neut # (Auto) 8.7 H (1.4-5.7) K/uL Lymph # (Auto) 5.6 H (0.6-2.4) K/uL [place] # (Auto) 1.3 H (0.0-0.8) K/uL Eos # (Auto) 0.1 (0.0-0.7) K/uL Baso # (Auto) 0.1 (0.0-0.1) K/uL Nucleated RBC % 0.0 /100WBC Nucleated RBCs # 0 K/uL INR APTT (18.6-31.3) SEC Sodium 139 (136-148) mmol/L Potassium 4.0 (3.5-5.1) mmol/L Chloride 103 (98-107) mmol/L Carbon Dioxide 24.1 (21.0-32.0) mmol/L BUN 15 (7.0-18.0) mg/dL Creatinine 1.1 (0.8-1.3) mg/dL Est Cr Clr Drug Dosing TNP Estimated GFR (MDRD) > 60.0 ml/min Glucose 142 H (74-106) mg/dL POC Glucose 145 H (70-99) mg/dL Calcium 8.7 (8.5-10.1) mg/dL Magnesium 2.1 (1.8-2.4) mg/dL Total Bilirubin 0.9 (0.2-1.0) mg/dL AST 26 (15-37) IU/L ALT 56 (14-63) IU/L Alkaline Phosphatase 74 (46-116) U/L Troponin I < 0.050 (0.000-0.056) ng/mL Total Protein 7.9 (6.4-8.2) g/dL Albumin 3.8 (3.4-5.0) g/dL Globulin 4.1 H (2.6-4.0) g/dL Albumin/Globulin Ratio 0.9 (0.9-1.6) SARS-CoV-2 RNA (ROSIE) (NEGATIVE) 10/20/21 10/20/21 Range/Units 23:10 23:24 WBC (4.0-11.0) K/uL RBC (4.50-5.90) M/uL Hgb (13.0-17.0) g/dL Hct (38.0-50.0) % MCV (80.0-98.0) fL MCH (27.0-32.0) pg MCHC (31.0-37.0) g/dL RDW Std Deviation (28.0-62.0) fl RDW Coeff of Nilo (11.0-15.0) % Plt Count (150-400) K/uL MPV (7.40-12.00) fL Neut % (Auto) (48.0-80.0) % Lymph % (Auto) (16.0-40.0) % [place] % (Auto) (0.0-15.0) % Eos % (Auto) (0.0-7.0) % Baso % (Auto) (0.0-1.5) % Neut # (Auto) (1.4-5.7) K/uL Lymph # (Auto) (0.6-2.4) K/uL [place] # (Auto) (0.0-0.8) K/uL Eos # (Auto) (0.0-0.7) K/uL Baso # (Auto) (0.0-0.1) K/uL Nucleated RBC % /100WBC Nucleated RBCs # K/uL INR 0.97 APTT 27.0 (18.6-31.3) SEC Sodium (136-148) mmol/L Potassium (3.5-5.1) mmol/L Chloride (98-107) mmol/L Carbon Dioxide (21.0-32.0) mmol/L BUN (7.0-18.0) mg/dL Creatinine (0.8-1.3) mg/dL Est Cr Clr Drug Dosing Estimated GFR (MDRD) ml/min Glucose (74-106) mg/dL POC Glucose (70-99) mg/dL Calcium (8.5-10.1) mg/dL Magnesium (1.8-2.4) mg/dL Total Bilirubin (0.2-1.0) mg/dL AST (15-37) IU/L ALT (14-63) IU/L Alkaline Phosphatase (46-116) U/L Troponin I (0.000-0.056) ng/mL Total Protein (6.4-8.2) g/dL Albumin (3.4-5.0) g/dL Globulin (2.6-4.0) g/dL Albumin/Globulin Ratio (0.9-1.6) SARS-CoV-2 RNA (ROSIE) NEGATIVE (NEGATIVE) Meds: Medications Discontinued Medications Generic Name Dose Route Start Last Admin Trade Name Freq PRN Reason Stop Dose Admin Meclizine HCl 50 mg 10/20/21 23:09 10/20/21 23:32 Meclizine 25 Mg Tab PO 10/20/21 23:10 50 mg ONETIME ONE Administration - Re-Assessments/Exams Free Text/Narrative Re-Assessment/Exam: 10/20/21 23:09 Patient presents with dizziness. Concern for posterior circulation stroke. Patient states this feels similar to when he was diagnosed with TIA in July. Will get labs and imaging. 10/20/21 23:13 NIHSS = 0 10/21/21 00:27 Labs and imaging are all unremarkable. Patient feels much better after meclizine. He states that he is no longer feeling dizzy. I did offer patient admission to the hospital for MRI imaging to rule out posterior circulation stroke, however, patient declines admission at this time. He states that he sees a neurologist at [facility] and has follow-up with her coming up in the next couple of weeks. He states that he will contact her office tomorrow. Return precautions were discussed at length. Departure - Departure Time of Disposition: 00:28 Disposition: Home, Self-Care 01 Condition: Good Clinical Impression: Vertigo - Discharge Information Instructions: Vertigo, [id number] Additional Instructions: Please follow-up with your neurologist. If you have any concerning symptoms prior to following up with your neurologist please come back to the emergency department for reassessment. The following information is given to patients seen in the emergency department who are being discharged to home. This information is to outline your options for follow-up care. We provide all patients seen in our emergency department with a follow-up referral. The need for follow-up, as well as the timing and circumstances, are variable depending upon the specifics of your emergency department visit. If you don't have a primary care physician on staff, we will provide you with a referral. We always advise you to contact your personal physician following an emergency department visit to inform them of the circumstance of the visit and for follow-up with them and/or the need for any referrals to a consulting specialist. The emergency department will also refer you to a specialist when appropriate. This referral assures that you have the opportunity for follow-up care with a specialist. All of these measure are taken in an effort to provide you with optimal care, which includes your follow-up. Under all circumstances we always encourage you to contact your private physician who remains a resource for coordinating your care. When calling for follow-up care, please make the office aware that this follow-up is from your recent emergency room visit. If for any reason you are refused follow-up, please contact the [facility] Emergency Department at and asked to speak to the emergency department charge nurse. Please follow up with your primary care physician. If you do not have a primary care physician, see below: [facility] [address] [place] [id number] [facility] [address] [place] [id number] [facility] [address] [place] [address] Sepsis Event Note (ED) - Focused Exam Vital Signs: Vital Signs Temp Pulse Resp BP Pulse Ox 10/20/21 23:56 101 H 16 133/73 95 10/20/21 23:34 98.1 F 91 18 138/82 96 - My Orders Last 24 Hours: My Active Orders 10/20/21 23:09 Saline Lock Insert [OM.PC] Stat - Assessment/Plan Last 24 Hours: My Active Orders 10/20/21 23:09 Saline Lock Insert [OM.PC] Stat
[2021-10-20 23:40] LABS: BLOOD UREA NITROGEN,BUN 15 mg/dL (7.0-18.0); CARBON DIOXIDE,CO2 24.1 mmol/L (21.0-32.0); CHLORIDE,CL 103 mmol/L (98-107); GLUCOSE RANDOM 142 mg/dL (74-106); SODIUM,NA 139 mmol/L (136-148)
--- NOTE | 2021-10-20 23:40 | CT ---
INDICATION: Dizziness. Code stroke COMPARISON: CT of the head from 07/25/2021 TECHNIQUE: CT examination of the head was performed with 2 and 5 mm thick axial and 2 mm thick coronal and sagittal sections without intravenous contrast. Images were obtained from the vertex of the skull through the skull base, and I examined the images with the brain and bone windows. Please note that all CT scans at this facility use dose modulation, iterative reconstruction, and/or weight-based dosing when appropriate to reduce radiation dose to as low as reasonably achievable. FINDINGS: Again seen is an old lacunar infarct in the anterior right putamen. Again seen is an old infarct in the posterior-medial left cerebellar hemisphere inferiorly, in the left PICA territory. The rest of the brain is normal in appearance for the patient`s age, with no sign of any mass lesion, mass effect, hemorrhage, or edema. The ventricles and sulci are normal in appearance. The visualized portions of the orbits are normal in appearance. The visualized paranasal sinuses and mastoids are clear. The osseous structures are normal in their appearance with no sign of abnormality in the skull base or calvarium. IMPRESSION: No sign of acute injury to the brain. 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 Please note that all CT scans at this facility use dose modulation, iterative reconstruction, and/or weight-based dosing when appropriate to reduce radiation dose to as low as reasonably achievable. Dictated by Danis Lambert MD @ 10/20/2021 11:38:17 PM (Electronically Signed)
[2021-10-21 00:39] VITALS: BP 125/73; PULSE 93
== END 2021-10-21 00:40 | disposition home or self-care (01) ==
LOC: MW.ED 23:01
DX: R42 Dizziness and giddiness (principal); I10 Essential (primary) hypertension; E11.9 Type 2 diabetes mellitus without complications; E66.01 Morbid (severe) obesity due to excess calories; Z79.84 Long term (current) use of oral hypoglycemic drugs; Z79.899 Other long term (current) drug therapy; Z20.822 Contact with and (suspected) exposure to COVID-19
CPT/HCPCS: 36415; 70450; 80053; 82947; 83735; 84484; 85025; 85610; 85730; 87635; 93005; 99284; A9270; U0002

== ENCOUNTER 2024-03-17 10:52 | Emergency (ER) | payer OTHER ==
[2024-03-17 11:48] LABS: APPEARANCE,URINE CLEAR; BILIRUBIN,URINE NEGATIVE (NEGATIVE); COLOR,URINE YELLOW; GLUCOSE,URINE >=1000 mg/dL (NEGATIVE); KETONES,URINE NEGATIVE (NEGATIVE); LEUKOCYTE ESTERASE,URINE NEGATIVE (NEGATIVE); NITRITE,URINE NEGATIVE (NEGATIVE); OCCULT BLOOD,URINE NEGATIVE (NEGATIVE); PROTEIN,URINE NEGATIVE (NEGATIVE); UROBILINOGEN,URINE 0.2 EU/dL (<2.0)
[2024-03-17] MEDS: Sodium Chloride 0.9% 1,000 ML IV ONE (12:04)
[2024-03-17] MEDS: Ketorolac 30 MG/ML SDV IVPUSH ONE (12:04)
[2024-03-17 12:13] LABS: BASOPHILS ABSOLUTE AUTO 0.08 K/uL (0.00-0.20); BASOPHILS PERCENT AUTO 0.6 % (0.0-1.0); EOSINOPHILS ABSOLUTE AUTO 0.09 K/uL (0.00-0.45); EOSINOPHILS PERCENT AUTO 0.7 % (0.0-6.0); HEMATOCRIT 50.5 % (42.0-52.0); HEMOGLOBIN 17.5 g/dL (14.0-18.0); IMMATURE GRAN ABSOLUTE AUTO 0.09 K/uL (0.00-0.05); IMMATURE GRAN PERCENT AUTO 0.7 % (0.0-0.4); LYMPHOCYTES ABSOLUTE AUTO 4.45 K/uL (1.00-4.80); LYMPHOCYTES PERCENT AUTO 33.3 % (24.0-44.0); MEAN CORPUSCULAR HEMOGLOBIN 29.5 pg (28.0-32.0); MEAN CORPUSCULAR HGB CONC 34.7 g/dL (32.0-36.0); MEAN CORPUSCULAR VOLUME 85.2 fL (83.0-99.0); MEAN PLATELET VOLUME 8.5 fL (9.4-12.4); MONOCYTES ABSOLUTE AUTO 1.18 K/uL (0.00-0.80); MONOCYTES PERCENT AUTO 8.8 % (0.0-8.0); NEUTROPHILS ABSOLUTE AUTO 7.48 K/uL (1.80-7.70); NEUTROPHILS PERCENT AUTO 55.9 % (41.0-71.0); PLATELET COUNT,PLT 169 K/uL (150-400); RED BLOOD CELL COUNT 5.93 M/uL (4.52-5.90); WHITE BLOOD CELL COUNT,WBC 13.37 K/uL (3.9-11.3)
[2024-03-17 12:38] LABS: A/G RATIO 0.9 (0.9-1.6); ALBUMIN 3.4 g/dL (3.4-5.0); CALCIUM 8.3 mg/dL (8.5-10.1); CARBON DIOXIDE,CO2 18.6 mmol/L (21.0-32.0); CREATININE 1.2 mg/dL (0.8-1.3); EST CRCL DRUG DOSING (CG) 58.58 mL/min; MAGNESIUM 1.9 mg/dL (1.8-2.4); POTASSIUM,K 3.8 mmol/L (3.5-5.1); PROTEIN TOTAL,TP 7.2 g/dL (6.4-8.2)
[2024-03-17] MEDS: Iopamidol 755 MG/ML 500 ML Multipack Bottle IVPUSH STA (13:29)
[2024-03-17 19:41] VITALS: BP 126/76; PULSE 82
== END 2024-03-17 14:36 | disposition home or self-care (01) ==
LOC: MW.ED 10:52
DX: K57.32 Diverticulitis of large intestine without perforation or abscess without bleeding (principal); I10 Essential (primary) hypertension; E11.9 Type 2 diabetes mellitus without complications; Z86.16 Personal history of COVID-19; Z75.8 Other problems related to medical facilities and other health care; Z79.51 Long term (current) use of inhaled steroids; Z79.899 Other long term (current) drug therapy
CPT/HCPCS: 36415; 74177; 80053; 81003; 83690; 83735; 85025; 96361; 96374; 99284; J1885; J7030; Q9967

== ENCOUNTER 2025-01-15 06:21 | Day surgery (SDC) | payer MEDICARE, OTHER ==
[~2025-01-15 06:21] MED LIST: Lactated Ringers 1,000 ML IV SCH
[2025-01-15] MEDS: Lactated Ringers 1,000 ML IV SCH (06:48)
[2025-01-15] MEDS ORDERED: dexmedeTOMIDine HCl 200 MCG/2 ML SDV ONE (07:15)
[2025-01-15] MEDS ORDERED: Sodium Chloride 0.9% 20 ML ONE (07:15)
[2025-01-15] MEDS ORDERED: propofoL 500 MG/50 ML 50 ML ONE (07:15)
[2025-01-15] MEDS ORDERED: Lactated Ringers 1,000 ML IV SCH (08:45)
[2025-01-15 10:24] VITALS: BP 129/82; PULSE 69
== END 2025-01-15 09:14 | disposition home or self-care (01) ==
LOC: MW.SDS 06:21
PROVIDERS: ATTEND Surgery
DX: K63.5 Polyp of colon (principal); K57.30 Diverticulosis of large intestine without perforation or abscess without bleeding; Z86.0100 Personal history of colon polyps, unspecified; J43.9 Emphysema, unspecified; E11.9 Type 2 diabetes mellitus without complications; K42.9 Umbilical hernia without obstruction or gangrene; E66.01 Morbid (severe) obesity due to excess calories; Z68.41 Body mass index [BMI] 40.0-44.9, adult; Z87.891 Personal history of nicotine dependence; Z79.84 Long term (current) use of oral hypoglycemic drugs; Z79.82 Long term (current) use of aspirin; Z79.899 Other long term (current) drug therapy
CPT/HCPCS: 45380; 82947; 88305; J2704; J7120; 00811; J3490